=== PATIENT | female | born 1960 | race Caucasian/White ===

== ENCOUNTER 2018-10-19 14:21 | Inpatient (IN) | payer OTHER ==
[2018-10-19 18:12] VITALS: BMI 23.0
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
[2018-10-19] MEDS ORDERED: chlordiazePOXIDE HCL 10 MG CAPSULE PO PRN (20:55)
[2018-10-19] MEDS ORDERED: MELATONIN 5 MG TABLETS PO PRN (20:55)
[2018-10-19] MEDS ORDERED: BISMUTH SUBSALICYLATE 524 MG/30 ML UD PO PRN (20:55)
[2018-10-19] MEDS ORDERED: IBUPROFEN 400 MG TABLET (FP) PO PRN (20:55)
[2018-10-19] MEDS ORDERED: MAGNESIUM CITRATE 300 ML BOTTLE PO PRN (20:55)
[2018-10-19] MEDS ORDERED: chlordiazePOXIDE HCL 25 MG CAPSULE PO ONE (20:55)
[2018-10-19] MEDS ORDERED: MAGNESIUM HYDROX 2400MG/30ML ORAL SUSPENSION 30 ML CUP PO PRN (20:55)
[2018-10-19] MEDS ORDERED: MAG HYDROX/AL HYDROX/SIMETH 30 ML UNIT-DOSE CUP PO PRN (20:55)
[2018-10-19] MEDS ORDERED: guaiFENesin 200 MG/10 ML 10 ML UNIT-DOSE CUPS PO PRN (20:55)
[2018-10-19] MEDS ORDERED: MENTHOL/PHENOL 1 EACH UD MM PRN (20:55)
[2018-10-19] MEDS ORDERED: ACETAMINOPHEN 325 MG TABLET (FP) PO PRN ×2 (20:55)
[2018-10-19] MEDS ORDERED: ALBUTEROL SO4 8 GM HFA INHALER IH PRN (20:56)
[2018-10-19] MEDS ORDERED: ALBUTEROL SO4 0.083% IH SOL 2.5 MG/3 ML VIAL.NEB. NEB PRN (21:04)
[2018-10-19] MEDS ORDERED: THIAMINE HCL 100 MG TABLET (FP) PO SCH (22:00)
[2018-10-19] MEDS: NICOTINE POLACRILEX 2 MG GUM BUC PRN (22:09)
[2018-10-19] MEDS: chlordiazePOXIDE HCL 25 MG CAPSULE PO SCH (22:09)
[2018-10-20] MEDS: chlordiazePOXIDE HCL 25 MG CAPSULE PO SCH (05:51)
[2018-10-20] MEDS: NICOTINE POLACRILEX 2 MG GUM BUC PRN (09:02)
[2018-10-20] MEDS ORDERED: NICOTINE 21 MG/24 HOURS TOPICAL PATCH TD SCH (10:00)
[2018-10-20] MEDS ORDERED: PRENATAL VITAMINS W/ FOLIC ACID TABLET (FP) PO SCH (10:00)
--- NOTE | 2018-10-20 11:31 | PN ---
S CIWA - CIWA Score Nausea/Vomitin-No Nausea/No Vomiting Muscle Tremors: 3 Anxiety: 3 Agitation: 3 Paroxysmal Sweats: 3 Orientation: 0-Oriented Tacttile Disturbances: 0-None Auditory Disturbances: 0-None Visual Disturbances: 0-None Headache: 0-None Present CIWA-Ar Total Score: 12 [facility] Progress Note (SOAP) Subjective: agitation tired sweats last night interrupted sleep shakes Objective: 10/20/18 11:30 Vital Signs Temperature 98.4 F 10/20/18 09:59 Pulse Rate 86 10/20/18 09:59 Respiratory Rate 18 10/20/18 09:59 Blood Pressure 133/84 10/20/18 09:59 O2 Sat by Pulse Oximetry (%) Laboratory Tests 10/19/18 19:07 POC Urine HCG, Qual Negative rest of labs pending aaox3 lying in bed no acute distress Assessment: 10/20/18 11:30 withdrawal sx Plan: continue detox increase fluids pending labs
[2018-10-20 12:04] LABS: ALBUMIN 3.6 g/dl (3.4-5.0); BILIRUBIN,TOTAL 2.7 mg/dL (0.2-1); BLOOD UREA NITROGEN 7.2 mg/dL (7-18); CALCIUM 9.6 mg/dL (8.5-10.1); CREATININE 0.6 mg/dL (0.55-1.3); POTASSIUM 4.6 mmol/L (3.5-5.1); TOT PROT 8.2 g/dl (6.4-8.2)
[2018-10-20 12:17] LABS: HEMATOCRIT 40.7 % (32.4-45.2); HEMOGLOBIN 13.6 GM/dL (10.7-15.3); MCHC 33.4 g/dl (32.0-36.0); MEAN CELL VOLUME 98.7 fl (80-96); MEAN PLT VOLUME 10.5 fl (7.5-11.1); PLATELET COUNT 212 K/MM3 (134-434); RBC 4.12 M/mm3 (3.60-5.2); RDW 13.9 % (11.6-15.6); WHITE BLOOD COUNT 6.5 K/mm3 (4.0-10.0)
--- NOTE | 2018-10-20 13:43 | EKG ---
Test Reason : Blood Pressure : / mmHG Vent. Rate : 077 BPM Atrial Rate : 077 BPM P-R Int : 216 ms QRS Dur : 070 ms QT Int : 400 ms P-R-T Axes : 067 035 043 degrees QTc Int : 452 ms SINUS RHYTHM WITH SINUS ARRHYTHMIA WITH 1ST DEGREE A-V BLOCK OTHERWISE NORMAL ECG NO PREVIOUS ECGS AVAILABLE Confirmed by Kunal Hale MD ([id number]) on 10/20/2018 1:42:34 PM Referred By: Confirmed By:Kunal Hale MD
[2018-10-20 13:51] VITALS: BP 157/81; PULSE 83; TEMP 98.6
--- NOTE | 2018-10-20 14:12 | PN ---
S Progress Note Note: pt arrived in withdrawals. pt c/o of withdrawals symptoms and aggressive symptomatic management attempted however, pt in spite of extensive motivational counseling regarding risk of relapse, DT's, seizures and/or loss, pt chose to sign out AMA.
--- NOTE | 2018-10-20 14:14 | DS ---
[facility] Detox Discharge Summary Admission Date: 10/19/18 - History Present History: Alcohol Dependence, Opioid Dependence, Sedative Dependence - Physical Exam Results Vital Signs: Vital Signs Temperature 98.6 F 10/20/18 13:50 Pulse Rate 83 10/20/18 13:50 Respiratory Rate 18 10/20/18 13:50 Blood Pressure 157/81 10/20/18 13:50 O2 Sat by Pulse Oximetry (%) Pertinent Admission Physical Exam Findings: pt arrived in withdrawals Laboratory Tests 10/19/18 10/20/18 10/20/18 19:07 07:00 07:00 WBC 6.5 RBC 4.12 Hgb 13.6 Hct 40.7 MCV 98.7 H MCH 33.0 MCHC 33.4 RDW 13.9 Plt Count 212 D MPV 10.5 Sodium 131 L Potassium 4.6 Chloride 95 L Carbon Dioxide 30 Anion Gap 6 L BUN 7.2 Creatinine 0.6 Est GFR (CKD-EPI)AfAm 115.63 Est GFR (CKD-EPI)NonAf 99.77 Random Glucose 101 Calcium 9.6 Total Bilirubin 2.7 H AST 153 H ALT 60 Alkaline Phosphatase 226 H Total Protein 8.2 Albumin 3.6 POC Urine HCG, Qual Negative today she is still c/o shakes/sweats/irritable however, pt chose to sign out AMA. - Treatment Patient has Accepted a Rehab Referral to: referral provided - Medication Discharge Medications: Ambulatory Orders Albuterol Sulfate Inhaler - [Ventolin HFA Inhaler -] 2 inh IH Q4H PRN #0 inh - AMA Did Patient Leave Against Medical Advice: Yes (going home)
[2018-10-21] MEDS ORDERED: chlordiazePOXIDE 5 MG CAPSULE PO SCH (05:00)
[2018-10-21 09:35] LABS: RPR REACTIVE 1:8 (NONREACTIVE)
[2018-10-21 09:37] LABS: TREPONEMA ANTIBODY PREVIOUSLY REACTIVE (NONREACTIVE)
[2018-10-22] MEDS ORDERED: chlordiazePOXIDE HCL 10 MG CAPSULE PO PRN
[2018-10-22] MEDS ORDERED: chlordiazePOXIDE HCL 10 MG CAPSULE PO SCH (05:00)
[2018-10-23] MEDS ORDERED: chlordiazePOXIDE HCL 10 MG CAPSULE PO ONE (05:00)
== END 2018-10-20 14:05 | disposition left against medical advice (07) | DRG 770 ==
LOC: YASAS 14:21 → Y6N 21:17
PROVIDERS: ADMIT Surgery; ATTEND Surgery
PROC: HZ2ZZZZ Detoxification Services for Substance Abuse Treatment (ICD-10-PCS; principal; 2018-10-19)
DX: F10.230 Alcohol dependence with withdrawal, uncomplicated (principal); F17.210 Nicotine dependence, cigarettes, uncomplicated; J44.9 Chronic obstructive pulmonary disease, unspecified; I34.1 Nonrheumatic mitral (valve) prolapse; H55.00 Unspecified nystagmus; R01.1 Cardiac murmur, unspecified; Z86.69 Personal history of other diseases of the nervous system and sense organs
CPT/HCPCS: 36415; 80053; 81025; 85027; 86480; 86593; 86780; 93005; 93010